=== PATIENT | male | born 1985 | race Caucasian/White ===

== ENCOUNTER → 2022-11-15 | Outpatient (CLI) | payer BC ==
--- NOTE | 2022-11-15 08:43 | MR ---
EXAMINATION TYPE: MR brain wo con DATE OF EXAM: 11/15/2022 7:49 AM COMPARISON: None available. 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 No gadolinium was gi cathy. FINDINGS: The ramos-white junctions, ventricular system, and cisterns appear unremarkable. No abnormal FLAIR sig nal abnormality identified. Midline structures show no abnormality. Diffusion-weighted imaging shows no evidence of restricted diffusion. The susceptibility weighted images do not reveal any evidence fo r micro-hemorrhage. No cerebellar tonsillar ectopia identified. No syrinx identified within the visua lized upper cervical spine. The bone marrow signal is within normal limits. The globes are unremarkable. Likely 1.2 cm mucous ret ention cyst within the right maxillary sinus. IMPRESSION: 1. No evidence of intracranial mass or acute/subacute infarct. 2. No cerebellar tonsillar ectopia identified.
== END | disposition home or self-care (01) ==
LOC: RADMRIMAIN 07:14
PROVIDERS: ATTEND Internal Medicine
DX: Q04.8 Other specified congenital malformations of brain (principal)
CPT/HCPCS: 70551